=== PATIENT | female | born 1985 | race Caucasian/White ===

== ENCOUNTER 2020-01-20 18:49 | Emergency (ER) | payer SELFPAY ==
[2020-01-20] VITALS (18 sets, daily range): BP systolic 93–150; BP diastolic 61–97; PULSE 71–90; RESP 12–22; TEMP 36.1; O2SAT 99–100
--- NOTE | ~2020-01-20 | CT_ITS ---
EXAMINATION: CT abdomen pelvis w con DATE: 01/20/2020 20:29 INDICATION: Right abdominal pain. Nausea. TECHNIQUE: Computed tomography (CT) of the abdomen and pelvis was performed with 100 mL Omnipaque 350 intravenous contrast. Automated exposure control and iterative reconstruction technique were employe d. The dose-length product was 607.23 mGy-cm. COMPARISON: CT abdomen and pelvis 11/30/2010 FINDINGS: The visualized portions of the lung bases demonstrate mild atelectasis. No pleural effusion . The heart size is normal. No pericardial effusion. There is a small sliding hiatal hernia. The live r, gallbladder, spleen, pancreas, and adrenal glands are normal. There are cysts in the kidneys measu ring up to 6 mm. There are no dilated loops of bowel. The appendix is normal. There are no pathologic ally enlarged lymph nodes. There is trace pelvic ascites. There is mild lumbar spondylosis and modera te thoracic spondylosis. IMPRESSION: 1. Small sliding hiatal hernia. Reviewed, dictated and finalized at location A.
[2020-01-20 19:11] LABS: Basophils Absolute Auto 0.1 K/mm3 (0.0-0.1); Basophils Percent Auto 0.5 % (0.2-1.2); Eosinophils Absolute Auto 0.1 K/mm3 (0-0.3); Eosinophils Percent Auto 0.6 % (0-4.4); Hematocrit 39.9 % (37.0-47.0); Hemoglobin 13.4 g/dL (12.0-15.0); Immature Granulocyte Absolute 0.04 K/mm3 (0.00-0.031); Immature Granulocyte Percent A 0.4 % (0-0.5); Lymphocytes Absolute Auto 2.37 K/mm3 (0.9-3.2); Lymphocytes Percent Auto 24.4 % (18.3-44.2); Mean Corpuscular HGB Conc 33.6 g/dl (32-36); Mean Corpuscular Hemoglobin 28.9 pg (26-34); Mean Corpuscular Volume 86.2 fl (80-100); Mean Platelet Volume 10.5 fl (7.4-10.4); Monocytes Absolute Auto 0.9 K/mm3 (0.1-0.6); Monocytes Percent Auto 8.8 % (2.6-8.5); Neutrophils Absolute Auto 6.3 K/mm3 (1.3-6.7); Neutrophils Percent Auto 65.3 % (45.5-73.1); Platelet Count Result 262 k/mm3 (150-375); Red Blood Count 4.63 M/mm3 (4.2-5.4); White Blood Count 9.7 K/mm3 (4.5-10.0)
[2020-01-20 19:13] LABS: Add Urine Microscopic? NO; Appearance Urine Clear (Clear); Bilirubin Urine Negative (Negative); Blood Urine Negative (Negative); Color Urine Yellow (Yellow); Glucose Urine UA Negative (Negative); Ketones Urine Negative (Negative); Leukocyte Esterase Ur Negative LEU/UL (Negative); Nitrate Urine Negative (Negative); Protein Urine Negative (Negative); Specific Grav Ur 1.024 (1.001-1.035); Urobilinogen Urine Negative mg/dL (<2.0)
[2020-01-20 19:25] LABS: Alanine Aminotransferase 19 U/L (4-35); Albumin Level 4.7 g/dL (3.5-5.1); Alkaline Phosphatase 87 U/L (38-126); Anion Gap 9 mmol/L (8-16); Aspartate Amino Transferase 22 U/L (14-36); Bilirubin,Total 0.4 mg/dL (0.2-1.3); Blood Urea Nitrogen 13 mg/dL (7-17); Calcium 9.9 mg/dL (8.4-10.2); Carbon Dioxide 25 mmol/L (22-30); Chloride 101 mmol/L (98-107); Estimated Glomerular Filt Rate > 60; Glucose 106 mg/dL (65-105); Lipase 100 U/L (23-300); Potassium 3.9 mmol/L (3.4-5.0); Sodium 135 mmol/L (137-145)
--- NOTE | 2020-01-20 19:35 | ED.ABDPAIN ---
HPI - Abdominal Pain General Chief Complaint: Abdominal Pain Stated Complaint: right abd pain Time Seen by Provider: 01/20/20 19:10 History of Present Illness HPI narrative: Patient is a 34-year-old female who presents ER with right-sided abdominal pain. It is intermittent and comes in waves. Associate with nausea and vomiting. Unknown aggravating or alleviating factors. Ongoing for last 2 days. Seems to be more in the right upper quadrant more in the eights down to the right lower quadrant. No urinary frequency/urgency/hematuria/dysuria. Related Data Allergies Allergy/AdvReac Type Severity Reaction Status Date / Time Penicillins AdvReac Unknown Vomiting Verified 01/20/20 19:10 Review of Systems Review of Systems: All systems reviewed & are unremarkable except as noted in HPI and below Constitutional: Constitutional: Denies chills, Denies fever(s) and Denies weakness Gastrointestinal: Gastrointestinal: Reports abdominal pain, Denies diarrhea, Reports nausea and Denies vomiting Genitourinary: Genitourinary: Denies hematuria, Denies nocturia, Denies dysuria and Reports flank pain PMFSH Past Medical History Medical History (Updated 01/20/20 @ 22:07 by Gurjit Luna MD) Healthy female adult Surgical History Surgical History (Updated 01/20/20 @ 19:40 by Gurjit Luna MD) No history of previous surgery Family History Family History (Updated 12/02/15 @ 23:21 by DOCTOR UNKNOWN) Mother Family history of rheumatoid arthritis Father Family history of diabetes mellitus in first degree relative Sibling Patient's sister is in good health Grandparent Family history of malignant neoplasm of breast Acute myocardial infarction Social History Social History Smoking status: Never smoker Alcohol intake: never Gender identity (if verbalized by the patient): Female Exam Narrative: Exam Narrative: GENERAL: Well-appearing, well-nourished, and in no acute distress. HEAD: Normocephalic, atraumatic. ENT: Mucous membranes moist. CHEST: Clear to auscultation. No respiratory distress. HEART: Regular rate and rhythm. Normal peripheral pulses. ABDOMEN: Soft, moderate tenderness in the right upper quadrant without guarding, nondistended. EXTREMITIES: Normal range of motion. No edema. SKIN: Warm, dry, no rash. NEURO: Alert and oriented x3. Course Course Emergency Course: Patient informed of results. Discharge home with Bentyl and simethicone. Vital Signs Vital signs: Vital Signs Temperature 97.0 F L 01/20/20 18:54 Pulse Rate 90 01/20/20 18:54 Respiratory Rate 16 01/20/20 18:54 Blood Pressure 150/97 H 01/20/20 18:54 Pulse Oximetry 100 01/20/20 18:54 Temperature 97.0 F L 01/20/20 18:54 Pulse Rate 79 01/20/20 21:49 Respiratory Rate 22 H 01/20/20 21:49 Blood Pressure 108/84 01/20/20 21:46 Pulse Oximetry 100 01/20/20 19:52 MDM - Abdominal Pain Lab Data Result diagrams: 01/20/20 19:04 01/20/20 19:04 Labs: Lab Results 01/20/20 01/20/20 01/20/20 Range/Units 19:04 19:04 19:04 WBC 9.7 (4.5-10.0) K/mm3 RBC 4.63 (4.2-5.4) M/mm3 Hgb 13.4 (12.0-15.0) g/dL Hct 39.9 (37.0-47.0) % MCV 86.2 (80-100) fl MCH 28.9 (26-34) pg MCHC 33.6 (32-36) g/dl RDW 13.0 (11.5-14.5) % Plt Count 262 (150-375) k/mm3 MPV 10.5 H (7.4-10.4) fl Immature Gran % (Auto) 0.4 (0-0.5) % Neut % (Auto) 65.3 (45.5-73.1) % Lymph % (Auto) 24.4 (18.3-44.2) % [place] % (Auto) 8.8 H (2.6-8.5) % Eos % (Auto) 0.6 (0-4.4) % Baso % (Auto) 0.5 (0.2-1.2) % Lymph # (Auto) 2.37 (0.9-3.2) K/mm3 [place] # (Auto) 0.9 H (0.1-0.6) K/mm3 Eos # (Auto) 0.1 (0-0.3) K/mm3 Baso # (Auto) 0.1 (0.0-0.1) K/mm3 Abs Immat Gran (auto) 0.04 H (0.00-0.031) K/mm3 Absolute Neuts (auto) 6.3 (1.3-6.7) K/mm3 Absolute Nucleated RBC 0.0 (0.0-0.012) K/mm3 Nucleated RBC % 0.0 (0.0-0.2) % Sod
[2020-01-20] MEDS: MORPHINE SULFATE (*CRX) 4 MG/ML INJ IV PUSH (19:51)
== END 2020-01-20 23:12 | disposition home or self-care (01) ==
PROVIDERS: Emergency Provider Emergency Medicine
DX: R10.9 Unspecified abdominal pain (principal)
CPT/HCPCS: 36415; 74177; 80053; 81003; 81025; 83690; 85025; 96374; 99284; J2270; Q9967

== ENCOUNTER 2020-11-05 23:55 | Emergency (ER) | payer SELFPAY ==
[2020-11-06 00:08] VITALS: BP 152/97; PULSE 85; RESP 16; TEMP 36.9; O2SAT 99
--- NOTE | 2020-11-06 01:48 | ED.DENTAL ---
HPI - Dental/Oral General Chief complaint: Dental/Oral Stated complaint: gum abscess Time Seen by Provider: 11/06/20 01:01 History of Present Illness HPI Narrative: Patient is a 35-year-old female who presents ER with swelling of her gums on the left side of the upper part of her mouth. Located between tooth 11 and 12. No purulent drainage. No pain. Denies fevers or chills or sweats. No difficulty breathing or swallowing. No facial swelling. Related Data Allergies Allergy/AdvReac Type Severity Reaction Status Date / Time Penicillins AdvReac Unknown Vomiting Verified 01/20/20 19:10 Review of Systems Constitutional: Constitutional: Denies chills and Denies fever(s) ENT: Denies sore throat Comments: No dental pain, gingival swelling is present. Respiratory: Respiratory: Denies cough and Denies dyspnea PMFSH Past Medical History Medical History (Updated 11/06/20 @ 01:51 by Gurjit Luna MD) Healthy female adult Surgical History Surgical History (Updated 01/20/20 @ 19:40 by Gurjit Luna MD) No history of previous surgery Family History Family History (Updated 12/02/15 @ 23:21 by DOCTOR UNKNOWN) Mother Family history of rheumatoid arthritis Father Family history of diabetes mellitus in first degree relative Sibling Patient's sister is in good health Grandparent Family history of malignant neoplasm of breast Acute myocardial infarction Social History Social History Smoking status: Never smoker Alcohol intake: never Gender identity (if verbalized by the patient): Female Exam Narrative: Exam Narrative: GENERAL: Well-appearing, well-nourished, and in no acute distress. HEAD: Normocephalic, atraumatic. ENT: Mucous membranes moist. Gingival hyperplasia located between teeth #11/12. No fluctuant abscess. Nontender. NEURO: Alert and oriented x3. PSYCH: Normal mood and affect. Course Course Emergency Course: Gingival inflammation may be related to infection despite not having dental pain. Will start on cephalosporin and patient will follow up with a dentist. Vital Signs Vital signs: Vital Signs Temperature 98.4 F 11/06/20 00:08 Pulse Rate 85 11/06/20 00:08 Respiratory Rate 16 11/06/20 00:08 Blood Pressure 152/97 H 11/06/20 00:08 Pulse Oximetry 99 11/06/20 00:08 Temperature 98.4 F 11/06/20 00:08 Pulse Rate 85 11/06/20 00:08 Respiratory Rate 16 11/06/20 00:08 Blood Pressure 152/97 H 11/06/20 00:08 Pulse Oximetry 99 11/06/20 00:08 Discharge Plan Discharge Clinical Impression: Gingival hyperplasia Patient Disposition: Home, Self-Care Condition: Stable Instructions: Antibiotic Form, Toothache (ED) Additional Instructions: The swelling of your gum may be related to a brewing infection. Take the antibiotics prescribed to help with this. Follow-up with a dentist for further treatment evaluation. Return the ER if you cannot breathe, you cannot swallow, you have additional concerns. Prescriptions: No Action dicyclomine 20 mg tablet 20 mg PO QID Qty: 20 RF: 0 simethicone [Gas Relief (simethicone)] 125 mg tablet,chewable 125 mg PO TID PRN (Reason: abdominal distention) Qty: 20 RF: 0 Follow-up/Referrals: Dental Referral Line [Outside] - 1 Week Ke,GRISELDA Jay [Primary Care Provider] - Stand Alone Forms: Work/School Release IP
[2020-11-06 02:17] VITALS: BP 146/90; PULSE 86; RESP 16; TEMP 36.8; O2SAT 100
== END 2020-11-06 02:18 | disposition home or self-care (01) ==
PROVIDERS: Emergency Provider Emergency Medicine; PCP Nurse Practitioner
DX: K06.1 Gingival enlargement (principal)
CPT/HCPCS: 99281

== ENCOUNTER 2021-05-05 11:24 | Emergency (ER) | payer SELFPAY ==
--- NOTE | ~2021-05-05 | US_ITS ---
EXAMINATION: US OB <=14 wk fetus w TV EXAM DATE: 05/05/2021 18:18 INDICATION: Positive test, vomiting, abd pain . 1st trimester. TECHNIQUE: Pelvic obstetrical transabdominal sonogram was performed by a technologist. There are mu ltiple grayscale and Doppler images available for interpretation. There are no earlier studies of th is gestation for comparison. FINDINGS: Uterus measures 8.9 x 4.8 x 6.3 cm. There is intrauterine gestation sac. pole with heart rate confirmed at 129 beats per minute. The 6 mm crown-rump length corresponds to estimated ge stational age by ultrasound of 6 weeks 3 days12/26/2021. Yolk sac is identified. There is small sub chorionic hematoma measuring 3 x 4 x 5 mm. The ovaries are morphologically normal with expected Dopp ler flow confirmed. IMPRESSION: Early live intrauterine gestation, small subchorionic hemorrhage. Reviewed, dictated and finalized at location A. WORKS [employer]IST
[2021-05-05 11:31] VITALS: BP 109/83; PULSE 95; RESP 14; TEMP 36.1; O2SAT 100
--- NOTE | 2021-05-05 14:57 | ED.NAVMDI ---
HPI - Nausea/Vomiting/Diarrhea General Chief complaint: Nausea/Vomiting/Diarrhea Stated complaint: covid positive, vomiting Time Seen by Provider: 05/05/21 14:46 Source: patient Mode of arrival: ambulatory Limitations: no limitations History of Present Illness HPI Narrative: This is a 35 year old female that presents to the ER for nausea and vomiting x3 days. Reports she was having cough and congestion so she was tested for Covid. This came back positive 5 days ago. She is vaccinated. Over the last couple of days she has had a lot of trouble with nausea and vomiting. Reports she has not been able to keep anything down. Denies fever, or abdominal pain. Related Data Allergies Allergy/AdvReac Type Severity Reaction Status Date / Time Penicillins AdvReac Unknown Vomiting Verified 01/20/20 19:10 Review of Systems Review of Systems: CONSTITUTIONAL: Denies fever CARDIOVASCULAR: Denies chest pain RESPIRATORY: Denies dyspnea. GASTROINTESTINAL: Reports nausea and vomiting. Denies abdominal pain All systems reviewed & are unremarkable except as noted in HPI and below PMFSH Past Medical History Medical History (Updated 05/05/21 @ 19:08 by Melba Orr PA-C) Healthy female adult Surgical History Surgical History (Updated 01/20/20 @ 19:40 by Gurjit Luna MD) No history of previous surgery Family History Family History (Updated 12/02/15 @ 23:21 by DOCTOR UNKNOWN) Mother Family history of rheumatoid arthritis Father Family history of diabetes mellitus in first degree relative Sibling Patient's sister is in good health Grandparent Family history of malignant neoplasm of breast Acute myocardial infarction Social History Social History Smoking status: Never smoker Alcohol intake: never Gender identity (if verbalized by the patient): Female Exam Narrative: GENERAL: Well-appearing, well-nourished, and in no acute distress. HEAD: Normocephalic, atraumatic. EYES: EOMI. CHEST: Clear to auscultation. No respiratory distress. No wheezes rales or rhonchi HEART: Regular rate and rhythm. No murmur heard. Normal peripheral pulses. ABDOMEN: Soft, nontender, nondistended, normal active bowel sounds. EXTREMITIES: Normal range of motion. No edema. SKIN: Warm, dry, no rash. NEURO: No focal deficits. Alert and oriented x3. PSYCH: Normal mood and affect Course Vital Signs Vital signs: Vital Signs Temperature 97.0 F L 05/05/21 11:31 Pulse Rate 95 05/05/21 11:31 Respiratory Rate 14 05/05/21 11:31 Blood Pressure 109/83 05/05/21 11:31 Pulse Oximetry 100 05/05/21 11:31 Temperature 97.0 F L 05/05/21 11:31 Pulse Rate 75 05/05/21 18:45 Respiratory Rate 18 05/05/21 18:45 Blood Pressure 121/78 05/05/21 18:45 Pulse Oximetry 100 05/05/21 18:45 MDM - Nausea/Vomiting/Diarrhea MDM Narrative Medical decision making narrative: Patient presents to the emergency department for cold symptoms present over the last week. Known Covid positive. She is afebrile and nontoxic-appearing. Oxygen saturation has remained normal on room air. CBC and metabolic panel without concerning findings. UA showing dehydration and possible infection. Patient will be started on Macrobid. Bedside test was positive today. Reports her last menstrual period was about 5 weeks ago. Ultrasound was obtained which showed a early live intrauterine gestation, also a small subchorionic hemorrhage. Patient is not currently having any vaginal bleeding. Patient was updated on case findings. Spoke with Dr. De La Torre about patient and work-up will follow-up in clinic. Patient will be given Reglan as needed for nausea and vomiting at home. She was hydrated in the ED and able to tolerate p.o. challenge. She is stable and felt appropriate for further outpatient evaluation. She was given warnings to return to the ER Lab Data Attestation: I reviewed the patient's lab results. Result diagrams: 05/05/21 15:18
[2021-05-05 15:24] LABS: Basophils Percent Auto 0.2 % (0.2-1.2); Eosinophils Percent Auto 0.2 % (0-4.4); Hemoglobin 14.1 g/dL (12.0-15.0); Immature Granulocyte Absolute 0.02 K/mm3 (0.00-0.031); Immature Granulocyte Percent A 0.2 % (0-0.5); Lymphocytes Percent Auto 19.7 % (18.3-44.2); Mean Corpuscular HGB Conc 34.4 g/dl (32-36); Mean Corpuscular Hemoglobin 30.1 pg (26-34); Mean Corpuscular Volume 87.6 fl (80-100); Mean Platelet Volume 10.2 fl (7.4-10.4); Monocytes Absolute Auto 0.7 K/mm3 (0.1-0.6); Monocytes Percent Auto 8.1 % (2.6-8.5); Neutrophils Absolute Auto 5.8 K/mm3 (1.3-6.7); Neutrophils Percent Auto 71.6 % (45.5-73.1); Platelet Count Result 207 k/mm3 (150-375); Red Blood Count 4.68 M/mm3 (4.2-5.4); Red Cell Distribution Width 12.4 % (11.5-14.5); White Blood Count 8.1 K/mm3 (4.5-10.0)
[2021-05-05] MEDS: SODIUM CHLORIDE 0.9% IV 1,000 ML 999 ML IV CONT ×2 (15:27→18:11)
[2021-05-05] MEDS: ONDANSETRON INJ 4 MG/2 ML VIAL IV PUSH (15:28)
[2021-05-05] MEDS: FAMOTIDINE 20 MG/2 ML VIAL IV PUSH (15:28)
[2021-05-05 15:30] VITALS: BP 110/79; PULSE 94; RESP 15; O2SAT 100
[2021-05-05 15:35] LABS: Alanine Aminotransferase 45 U/L (4-35); Albumin Level 4.6 g/dL (3.5-5.1); Alkaline Phosphatase 72 U/L (38-126); Anion Gap 14 mmol/L (8-16); Aspartate Amino Transferase 38 U/L (14-36); Bilirubin,Total 0.8 mg/dL (0.2-1.3); Blood Urea Nitrogen 13 mg/dL (7-17); Calcium 9.3 mg/dL (8.4-10.2); Carbon Dioxide 21 mmol/L (22-30); Chloride 101 mmol/L (98-107); Estimated CRCL calculation 86 ml/min; Estimated Glomerular Filt Rate > 60; Glucose 95 mg/dL (65-110); Lipase 70 U/L (23-300); Sodium 136 mmol/L (137-145)
--- NOTE | 2021-05-05 15:35 | PC.NURSE ---
Pt unable to give urine sample at this time.
[2021-05-05 17:00] VITALS: BP 120/84; PULSE 92; RESP 15; O2SAT 100
[2021-05-05 17:19] LABS: Add Urine Microscopic? YES; Appearance Urine Clear (Clear); Bacteria Urine Trace /hpf; Bilirubin Urine Negative (Negative); Blood Urine 2+ (Negative); Color Urine Amber (Yellow); Glucose Urine UA Negative (Negative); Ketones Urine 2+ mg/dL (Negative); Leukocyte Esterase Ur 3+ LEU/UL (Negative); Mucus Urine Moderate /lpf; Nitrate Urine Negative (Negative); Protein Urine 1+ mg/dL (Negative); Specific Grav Ur 1.028 (1.001-1.035); Squamous Epithelial Cell Urine Many /hpf (Few); WBC Urine 51-75 /hpf
[2021-05-05 18:45] VITALS: BP 121/78; PULSE 75; RESP 18; O2SAT 100
== END 2021-05-05 19:27 | disposition home or self-care (01) ==
PROVIDERS: Physician Assistant; Emergency Provider Emergency Medicine; PCP Nurse Practitioner
DX: O98.519 Other viral diseases complicating pregnancy, unspecified trimester (principal); U07.1 COVID-19; O26.899 Other specified pregnancy related conditions, unspecified trimester; E86.0 Dehydration; R11.2 Nausea with vomiting, unspecified; Z3A.00 Weeks of gestation of pregnancy not specified
CPT/HCPCS: 36415; 76801; 76817; 80053; 81001; 81025; 83690; 84702; 85025; 87086; 87088; 96361; 96374; 96375; 99284; J0131; J2405; J7030

== ENCOUNTER 2021-06-11 15:12 | Emergency (ER) | payer SELFPAY ==
[2021-06-11 15:40] VITALS: BP 127/88; PULSE 90; RESP 16; TEMP 36.6; O2SAT 99
[2021-06-11] MEDS: METOCLOPRAMIDE HCL INJ 10 MG/2 ML VIAL IV PUSH (18:08)
[2021-06-11] MEDS: SODIUM CHLORIDE 0.9% IV 1,000 ML 999 ML IV CONT ×2 (18:08→19:27)
[2021-06-11 18:10] LABS: Basophils Percent Auto 0.2 % (0.2-1.2); Eosinophils Percent Auto 0.1 % (0-4.4); Hematocrit 40.1 % (37.0-47.0); Hemoglobin 13.6 g/dL (12.0-15.0); Immature Granulocyte Absolute 0.03 K/mm3 (0.00-0.031); Immature Granulocyte Percent A 0.3 % (0-0.5); Lymphocytes Absolute Auto 1.24 K/mm3 (0.9-3.2); Lymphocytes Percent Auto 13.7 % (18.3-44.2); Mean Corpuscular HGB Conc 33.9 g/dl (32-36); Mean Corpuscular Hemoglobin 30.8 pg (26-34); Mean Corpuscular Volume 90.9 fl (80-100); Mean Platelet Volume 10.5 fl (7.4-10.4); Monocytes Absolute Auto 0.7 K/mm3 (0.1-0.6); Monocytes Percent Auto 7.5 % (2.6-8.5); Neutrophils Absolute Auto 7.1 K/mm3 (1.3-6.7); Neutrophils Percent Auto 78.2 % (45.5-73.1); Platelet Count Result 197 k/mm3 (150-375); Red Blood Count 4.41 M/mm3 (4.2-5.4); Red Cell Distribution Width 12.7 % (11.5-14.5); White Blood Count 9.1 K/mm3 (4.5-10.0)
--- NOTE | 2021-06-11 18:40 | ED.GENADULT ---
HPI - General Adult General Chief complaint: Nausea/Vomiting/Diarrhea Stated complaint: N/V 12WKS PREG Time Seen by Provider: 06/11/21 17:33 Source: patient and RN notes reviewed History of Present Illness HPI narrative: Patient is a 35 y/o female complaining of nausea and vomiting starting 2 days ago. She states that she is vomiting up liquid and food. She vomited 15-20 minutes during last 24 hours. She has no dysuria, abdominal pain or diarrhea. She states that she is about 12 week . Related Data Allergies Allergy/AdvReac Type Severity Reaction Status Date / Time Penicillins AdvReac Unknown Vomiting Verified 01/20/20 19:10 Review of Systems Constitutional: Constitutional: Denies chills, Denies fever(s), Denies headache(s) and Denies weakness Eyes: Eyes: Denies blurry vision ENT: Denies headache(s) and Denies neck pain Cardiovascular: Cardiovascular: Denies chest pain and Denies dyspnea Respiratory: Respiratory: Denies cough and Denies dyspnea Gastrointestinal: Gastrointestinal: Denies abdominal pain, Denies diarrhea, Reports nausea and Reports vomiting Genitourinary: Genitourinary: Denies hematuria and Denies dysuria Musculoskeletal: Musculoskeletal: Denies back pain and Denies neck pain Neurologic: Denies headache(s) and Denies weakness PMFSH Past Medical History Medical History Healthy female adult Surgical History Surgical History No history of previous surgery Family History Family History Mother Family history of rheumatoid arthritis Father Family history of diabetes mellitus in first degree relative Sibling Patient's sister is in good health Grandparent Family history of malignant neoplasm of breast Acute myocardial infarction Social History Social History Smoking status: Never smoker Alcohol intake: never Gender identity (if verbalized by the patient): Female Exam Const: General: no acute distress and well developed Orientation/consciousness: oriented to person, oriented to place, oriented to time and patient oriented x3 HENMT: Head: normocephalic Ears: external ears normal General nose exam: Normal external nose present Eyes: General: appearance normal, both eyes and all related structures Conjunctivae: conjunctivae normal Neck: Neck: normal visual inspection and full ROM Chest: Chest palpation & inspection: normal inspection of the chest and no tenderness Resp: Effort & Inspection: normal respiratory effort Auscultation: clear to auscultation bilaterally Cardio: Rate: regular rate Rhythm: regular rhythm GI: GI Palp: No abdominal tenderness and Yes Soft to palpation Skin: General skin exam: normal color and turgor normal Neuro: General: oriented to person, oriented to place, oriented to time and patient oriented x3 Cognition (Neuro): normal cognition Extrem: General: normal to inspection, full ROM and no pedal edema Psych: Appearance: grossly normal Mental Status: mental status grossly normal Affect: normal affect Course Vital Signs Vital signs: Vital Signs Temperature 36.6 C 06/11/21 15:40 Pulse Rate 90 06/11/21 15:40 Respiratory Rate 16 06/11/21 15:40 Blood Pressure 127/88 06/11/21 15:40 Pulse Oximetry 99 06/11/21 15:40 Temperature 36.6 C 06/11/21 15:40 Pulse Rate 90 06/11/21 15:40 Respiratory Rate 16 06/11/21 15:40 Blood Pressure 127/88 06/11/21 15:40 Pulse Oximetry 99 06/11/21 15:40 Medical Decision Making Vital Signs Vital Signs: Vital Signs Temperature 36.6 C 06/11/21 15:40 Pulse Rate 90 06/11/21 15:40 Respiratory Rate 16 06/11/21 15:40 Blood Pressure 127/88 06/11/21 15:40 Pulse Oximetry 99 06/11/21 15:40 Temperature 36.6 C 06/11/21 15:40 Pulse Rate 90 06/11/21
[2021-06-11 18:45] LABS: Add Urine Microscopic? YES; Appearance Urine Clear (Clear); Bacteria Urine Trace /hpf; Bilirubin Urine Negative (Negative); Blood Urine 1+ (Negative); Color Urine Amber (Yellow); Glucose Urine UA Negative (Negative); Ketones Urine Negative (Negative); Leukocyte Esterase Ur 2+ LEU/UL (Negative); Mucus Urine Heavy /lpf; Nitrate Urine Negative (Negative); Protein Urine Negative (Negative); Squamous Epithelial Cell Urine Many /hpf (Few); Urobilinogen Urine Negative mg/dL (<2.0); WBC Urine 51-75 /hpf
[2021-06-11 18:46] LABS: Specific Grav Ur 1.031 (1.001-1.035)
[2021-06-11 18:47] LABS: Alanine Aminotransferase 33 U/L (4-35); Alkaline Phosphatase 67 U/L (38-126); Anion Gap 13 mmol/L (8-16); Aspartate Amino Transferase 29 U/L (14-36); Bilirubin,Total 1.2 mg/dL (0.2-1.3); Blood Urea Nitrogen 9 mg/dL (7-17); Calcium 9.7 mg/dL (8.4-10.2); Carbon Dioxide 20 mmol/L (22-30); Chloride 103 mmol/L (98-107); Estimated CRCL calculation 77 ml/min; Estimated Glomerular Filt Rate > 60; Glucose 81 mg/dL (65-110); Potassium 3.6 mmol/L (3.4-5.0); Sodium 136 mmol/L (137-145)
--- NOTE | 2021-06-11 20:22 | PC.NURSE ---
patient receiving bag 2 of IVF. able to tolerate po intake and states she feels better at this time. will continue to receive fluids and then d/c home as directed.
== END 2021-06-11 21:17 | disposition home or self-care (01) ==
PROVIDERS: Emergency Provider Emergency Medicine; PCP Nurse Practitioner
DX: O21.0 Mild hyperemesis gravidarum (principal); O23.41 Unspecified infection of urinary tract in pregnancy, first trimester; Z3A.12 12 weeks gestation of pregnancy
CPT/HCPCS: 36415; 80053; 81001; 84702; 85025; 87086; 87088; 96361; 96374; 99284; J2765; J7030

== ENCOUNTER 2021-08-28 19:07 | Outpatient (CLI) | payer OTHER, SELFPAY ==
[2021-08-28] VITALS (7 sets, daily range): BP systolic 102–123; BP diastolic 58–73; PULSE 71–84; RESP 16; TEMP 36.7
[2021-08-28 20:12] LABS: Basophils Percent Auto 0.1 % (0.2-1.2); Eosinophils Percent Auto 0.4 % (0-4.4); Hematocrit 34.5 % (37.0-47.0); Hemoglobin 11.4 g/dL (12.0-15.0); Immature Granulocyte Absolute 0.05 K/mm3 (0.00-0.031); Immature Granulocyte Percent A 0.6 % (0-0.5); Lymphocytes Absolute Auto 1.45 K/mm3 (0.9-3.2); Lymphocytes Percent Auto 16.3 % (18.3-44.2); Mean Corpuscular Hemoglobin 30.8 pg (26-34); Mean Corpuscular Volume 93.2 fl (80-100); Monocytes Absolute Auto 0.8 K/mm3 (0.1-0.6); Monocytes Percent Auto 8.9 % (2.6-8.5); Neutrophils Absolute Auto 6.6 K/mm3 (1.3-6.7); Neutrophils Percent Auto 73.7 % (45.5-73.1); Platelet Count Result 191 k/mm3 (150-375); White Blood Count 8.9 K/mm3 (4.5-10.0)
[2021-08-28 20:23] LABS: Alanine Aminotransferase 15 U/L (4-35); Albumin Level 3.4 g/dL (3.5-5.1); Alkaline Phosphatase 72 U/L (38-126); Anion Gap 5 mmol/L (8-16); Aspartate Amino Transferase 20 U/L (14-36); Bilirubin,Total < 0.1 mg/dL (0.2-1.3); Blood Urea Nitrogen 9 mg/dL (7-17); Calcium 8.4 mg/dL (8.4-10.2); Carbon Dioxide 24 mmol/L (22-30); Chloride 104 mmol/L (98-107); Estimated Glomerular Filt Rate > 60; Glucose 100 mg/dL (65-110); Potassium 3.8 mmol/L (3.4-5.0); Sodium 133 mmol/L (137-145); Uric Acid 2.4 mg/dL (2.5-7.5)
[2021-08-28 20:24] LABS: Creatinine Urine 192.4 mg/dL; Total Protein Urine Random 8 mg/dL; Ur Ttl Prot Creatinine Ratio 0.04 mg/mg (0-0.20)
[2021-08-28 20:26] LABS: Add Urine Microscopic? YES; Appearance Urine Cloudy (Clear); Bacteria Urine Trace /hpf; Bilirubin Urine Negative (Negative); Blood Urine Negative (Negative); Calcium Oxalate Crystals Urine Present /hpf; Color Urine Yellow (Yellow); Glucose Urine UA Negative (Negative); Ketones Urine Negative (Negative); Leukocyte Esterase Ur 1+ LEU/UL (NEGATIVE); Mucus Urine Rare /lpf; Nitrate Urine Negative (Negative); Protein Urine Negative (Negative); Specific Grav Ur 1.026 (1.001-1.035); Squamous Epithelial Cell Urine Many /hpf (Few)
== END 2021-08-28 20:35 | disposition home or self-care (01) ==
LOC: ANHOBOP 19:13 → ANHOBPP 19:13
PROVIDERS: PCP Nurse Practitioner; Visit Provider Obstetrics & Gynecology
DX: O13.9 Gestational [pregnancy-induced] hypertension without significant proteinuria, unspecified trimester (principal); Z3A.00 Weeks of gestation of pregnancy not specified
CPT/HCPCS: 36415; 59025; 80053; 81001; 82570; 84156; 84550; 85025; 87086; 87088; 99199

== ENCOUNTER 2021-09-07 10:00 | Outpatient (CLI) | payer OTHER, SELFPAY ==
--- NOTE | ~2021-09-07 | US_ITS ---
EXAMINATION: US venous doppler LE RT DATE: 09/07/2021 10:51 INDICATION: Bilateral lower limb pain TECHNIQUE: Odell scale images without and with compression and Doppler images of the bilateral lower e xtremity veins were obtained. COMPARISON: None FINDINGS: The right common femoral vein, profunda femoral vein, femoral vein, popliteal vein, peroneal trunk, p osterior tibial veins, and greater saphenous vein are patent. The left common femoral vein, profunda femoral vein, femoral vein, popliteal vein, peroneal trunk, po sterior tibial veins, and greater saphenous vein are patent. IMPRESSION: 1. Patent bilateral lower extremity veins. No evidence of deep venous thrombosis. Reviewed, dictated and finalized at location B. IMPRESSION: 1. Patent bilateral lower extremity veins. No evidence of deep venous thrombosi s.
== END 2021-09-07 10:01 | disposition home or self-care (01) ==
PROVIDERS: PCP Nurse Practitioner; Visit Provider Advanced Practice Midwife
DX: M79.661 Pain in right lower leg (principal)
CPT/HCPCS: 93971

== ENCOUNTER 2021-12-11 11:49 | Outpatient (CLI) | payer OTHER, SELFPAY | END 2021-12-11 13:30 | disposition home or self-care (01) | LOC: ANHOBOP 13:14 → ANHLDR 13:16 | PROVIDERS: PCP Nurse Practitioner; Visit Provider Advanced Practice Midwife | DX: O41.8X90 Other specified disorders of amniotic fluid and membranes, unspecified trimester, not applicable or unspecified (principal); Z3A.00 Weeks of gestation of pregnancy not specified | CPT/HCPCS: 84112; 99199 ==

== ENCOUNTER 2021-12-12 19:23 | Emergency (ER) | payer OTHER, SELFPAY ==
[2021-12-12 19:28] VITALS: BP 140/98; PULSE 60; RESP 16; TEMP 36.2; O2SAT 97
--- NOTE | 2021-12-12 22:40 | PC.NURSE ---
Pt called back from waiting room at 22:27 and again at 22:40. Security saw patient leave. Did check outside, patient is not outside at this time. Left without being seen, did not alert nursing staff.
== END 2021-12-12 22:27 | disposition left against medical advice (07) ==
PROVIDERS: PCP Nurse Practitioner
DX: R20.0 Anesthesia of skin (principal)
CPT/HCPCS: 99199

== ENCOUNTER 2021-12-19 05:45 | Inpatient (IN) | payer OTHER, SELFPAY ==
[2021-12-19] VITALS (156 sets, daily range): BP systolic 90–198; BP diastolic 56–170; PULSE 27–130; RESP 18; TEMP 36.4–37.2; O2SAT 78–100; BMI 31.6
--- OUTSIDE RECORDS SUMMARY | 2021-12-19 05:52 | XMS_ITS | Encounter Summary ---
:1985 Author Care Team Providers Name Role Phone Patience Dempsey Primary Care Provider [phone] Reason for Visit OB visit Assessment and Plan 1. Routine care Discussion Note: None recorded.Patient educational handouts: No information available. Plan of Care Reminders Provider Appointments Repeat Pap on or around 04/18/2022 Miguel Rivera MD Lab None recorded. ? ? Referral None recorded. ? ? Procedures None recorded. ? ? Surgeries None recorded. ? ? Imaging None recorded. ? ? Medications Name Start Date ? ? iron ? Vitamin ? Medications Administered None recorded. Vitals Height Weight BMI Blood Pressure 5 ft 167 lbs 32.6 kg/m2 114/77 mm[Hg] Results Lab Results None recorded. Allergies Code Code System Name Reaction Severity Onset Penicillins ? ? ? Problems Name Status Onset Date Source ? History of SARS-CoV-2 Active 04/05/2021 ? Active 06/15/2021 ? Procedures Date Name Performed by ? 05/06/2003 Extraction of [place] Tooth Information n ot available 11/22/2021 US, Obstetric, Follow-up [place] [address] [place] [address] (Work [address]) Vaccine List None recorded. Social History Tobacco Smoking Status Never Smoker Do you have difficulty walking or climbing stairs? N What type of diet are you following? REGULAR
--- OUTSIDE RECORDS SUMMARY | 2021-12-19 05:52 | XMS_ITS | Encounter Summary ---
:1985 Author Care Team Providers Name Role Phone Patience Dempsey Primary Care Provider [phone] Reason for Visit OB visit OB [id number] EDC 12/26/2021 LMP 03/26/2021 Assessment and Plan Assessment Note Patient is _35__weeks . Discuss ed plan. 1. Routine care Discussion Note: None recorded.Patient [...] Pressure 5 ft 167 lbs 32.6 kg/m2 127/85 mm[Hg] Results Lab Results None recorded. Allergies Code Code System Name Reaction Severity Onset Penicillins ? ? ? Problems Name Status Onset Date Source ? History of SARS-CoV-2 Active 04/05/2021 ? Active 06/15/2021 ? Procedures Date Name Performed by ? 05/06/2003 Extraction of [place] Tooth Information n ot available 11/02/2021 US, Obstetric, Follow-up [place] [address] [place] [address] (Work [address]) 11/22/2021 US, Obstetric, Follow-u
--- OUTSIDE RECORDS SUMMARY | 2021-12-19 05:52 | XMS_ITS | Encounter Summary ---
:1985 Author Care Team Providers Name Role Phone Patience Dempsey Primary Care Provider [phone] Reason for Visit OB visit Assessment and Plan Assessment Note Patient is ___weeks . Discussed plan. 1. Routine care Discussion Note: None [...] Pressure 5 ft 167 lbs 32.6 kg/m2 118/77 mm[Hg] Results Lab Results None recorded. Allergies Code Code System Name Reaction Severity Onset Penicillins ? ? ? Problems Name Status Onset Date Source ? History of SARS-CoV-2 Active 04/05/2021 ? Active 06/15/2021 ? Procedures Date Name Performed by ? 05/06/2003 Extraction of [place] Tooth Information n ot available 11/02/2021 US, Obstetric, Follow-up [place] [address] [place] [address] (Work [address]) 11/22/2021 US, Obstetric, Follow-up [place] [address]
--- OUTSIDE RECORDS SUMMARY | 2021-12-19 05:52 | XMS_ITS | Encounter Summary ---
:1985 Author Care Team Providers Name Role Phone Patience Dempsey Primary Care Provider [phone] Reason for Visit OB visit Assessment and [...] Pressure 5 ft 167 lbs 32.6 kg/m2 118/82 mm[Hg] Results Lab Results None recorded. Allergies Code Code System Name Reaction Severity Onset Penicillins ? ? ? Problems Name Status Onset Date Source ? History of SARS-CoV-2 Active 04/05/2021 ? Active 06/15/2021 ? Procedures Date Name Performed by ? 05/06/2003 Extraction of [place] Tooth Information n ot available 11/22/2021 US, Obstetric, Follow-up [place] [address] [place] [address] (Work [address]) Vaccine List None recorded. Social History Tobacco Smoking Status Never Smoker Do you have difficulty walking or climbing stairs? N What type of diet are you following? REGULAR
--- OUTSIDE RECORDS SUMMARY | 2021-12-19 05:52 | XMS_ITS | Encounter Summary ---
:1985 Author Care Team Providers Name Role Phone Patience Dempsey Primary Care Provider [phone] Reason for Visit None recorded. Assessment and Plan 1. Pre-existing maternal disease compli cating ? US, obstetric, follow-up Discussion Note: None recorded.Patient educational handouts: No information available. Plan of Care Reminders Provider Appointments Repeat Pap on or around Ken avalos MD 04/18/2022 Lab None recorded. ? ? Referral None recorded. ? ? Procedures None recorded. ? ? Surgeries None recorded. ? ? Imaging US, Obstetric, 11/22/2021 [place] Follow-up Medications Name Start Date ? ? iron ? Vitamin ? Medications Administered None recorded. Vitals None recorded. Results Lab Results None recorded. Allergies Code Code System Name Reaction Severity Onset Penicillins ? ? ? Problems Name Status Onset Date Source ? History of SARS-CoV-2 Active 04/05/2021 ? Active 06/15/2021 ? Procedures Date Name Performed by ? 05/06/2003 Extraction of [place] Tooth Information n ot available 11/02/2021 US, Obstetric, Follow-up [place] [address] [place] [address] (Work [address]) 11/22/2021 US, Obstetric, Follow-up [place] [address] [facility]
--- OUTSIDE RECORDS SUMMARY | 2021-12-19 05:52 | XMS_ITS ---
:1985 Author Care Team Providers Name Role Phone LUCY BOLANOS Primary Care Provider [phone] Allergies Code Code System Name Reaction Severity Status Onset Penicillins ? ? Active ? Medications Name Status Start Date Stop Date ? ? acetaminophen 300 mg-codeine 30 mg tablet Completed ? 04/10/2021 1-2 TABLETS EVERY 6 HRS NEEDED FOR PAIN cephalexin 500 mg capsule Completed ? 2020 TAKE 1 CAPSULE BY MOUTH THREE TIMES DAILY chlorhexidine gluconate 0.12 % mouthwash Completed ? 04/10/2021 SIWH 10-15ML IN MOUTH THEN SPIT OUT TWICE DAILY COVID-19 test specimen collection Completed ? 11/07/2021 TEST DIRECTED iron Active ? Not available metoclopramide 10 mg tablet Completed ? 09/2021 metoclopramide 5 mg tablet Completed ? 05/23 TAKE 1 TABLET BY MOUTH EVERY 6 HOURS NEEDED FOR NAUSEA OR VO MITING moxifloxacin 0.5 % eye drops Completed ? 09/2021 nitrofurantoin monohydrate/macrocrystals 100 mg capsule Complete d ? 09/07/2021 ofloxacin 0.3 % eye drops Completed ? 2020 INSTILL 1 DROP IN RIGHT EYE EVERY 2 HOURS FOR 2 DAYS ondansetron 8 mg disintegrating tablet Completed ? 11/07/2021 DISSOLVE 1 TABLET ON THE TONGUE TWICE DAILY pantoprazole 20 mg tablet,delayed release Completed ? 04/10/2021 Vitamin Active ? Not available Problems Name Status Onset Date Source ? History of SARS-CoV-2 Active 04/05/2021 ? Active 06/15/2021 ? Procedures Date Name Performed by ? 05/06/2003 Extraction of [place] Tooth Information n ot available 05/15/2021 US,
--- OUTSIDE RECORDS SUMMARY | 2021-12-19 05:53 | XMS_ITS | Encounter Summary ---
:1985 Author Care Team Providers Name Role Phone Patience Dempsey Primary Care Provider [phone] Reason for Visit OB visit Assessment and [...] Height Weight BMI Blood Pressure 5 ft 162 lbs 31.6 kg/m2 126/89 mm[Hg] Results Lab Results None recorded. Allergies Code Code System Name Reaction Severity Onset Penicillins ? ? ? Problems Name Status Onset Date Source ? History of SARS-CoV-2 Active 04/05/2021 ? Active 06/15/2021 ? Procedures Date Name Performed by ? 05/06/2003 Extraction of [place] Tooth Information n ot available 09/07/2021 US, Obstetric, Follow-up [facility] [address] [place] [address] (Work [address]) 09/07/2021 US, Doppler, Venous [facility] [address]
--- OUTSIDE RECORDS SUMMARY | 2021-12-19 05:53 | XMS_ITS | Encounter Summary ---
:1985 Author Care Team Providers Name Role Phone Patience Dempsey Primary Care Provider [phone] Reason for Visit OB visit OB [id number] EDC 12/26/2021 LMP 03/26/2021 Assessment and Plan 1. Routine care Discussion [...] Height Weight BMI Blood Pressure 5 ft 161 lbs 31.4 kg/m2 115/79 mm[Hg] Results Lab Results None recorded. Allergies Code Code System Name Reaction Severity Onset Penicillins ? ? ? Problems Name Status Onset Date Source ? History of SARS-CoV-2 Active 04/05/2021 ? Active 06/15/2021 ? Procedures Date Name Performed by ? 05/06/2003 Extraction of [place] Tooth Information n ot available 10/06/2021 , Obstetric, Follow-up [facility] [address] [place] [address] (Work [address]) Vaccine List None recorded. Social History Tobacco Smoking Status Never Smoker Do you have difficulty walking or climbing stairs? N
--- OUTSIDE RECORDS SUMMARY | 2021-12-19 05:53 | XMS_ITS | Encounter Summary ---
:1985 Author Care Team Providers Name Role Phone Patience Dempsey Primary Care Provider [phone] Reason for Visit OB visit OB [id number] EDC 12/26/2021 LMP 03/26/2021 Assessment and Plan [...] Height Weight BMI Blood Pressure 5 ft 164 lbs 32 kg/m2 112/78 mm[Hg] Results Lab Results None recorded. Allergies Code Code System Name Reaction Severity Onset Penicillins ? ? ? Problems Name Status Onset Date Source ? History of SARS-CoV-2 Active 04/05/2021 ? Active 06/15/2021 ? Procedures Date Name Performed by ? 05/06/2003 Extraction of [place] Tooth Information n ot available 10/06/2021 US, Obstetric, Follow-up [facility] [address] [place] [address] (Work [address]) Vaccine List None recorded. Social History Tobacco Smoking Status Never Smoker Do you have difficulty walking or climbing stairs? N
--- OUTSIDE RECORDS SUMMARY | 2021-12-19 05:53 | XMS_ITS | Encounter Summary ---
:1985 Author Care Team Providers Name Role Phone Patience Dempsey Primary Care Provider [phone] Reason for Visit None recorded. Assessment and Plan 1. COVID-19 ? US, obstetric, follow-up Discussion Note: None recorded.Patient educational handouts: No information available. Plan of Care Reminders Provider Appointments Repeat Pap on or around Ken avalos MD 04/18/2022 Lab None recorded. ? ? Referral None recorded. ? ? Procedures None recorded. ? ? Surgeries None recorded. ? ? Imaging US, Obstetric, 11/02/2021 [facility] Follow-up Medications Name Start Date ? ? iron ? Vitamin ? Medications Administered None recorded. Vitals None recorded. Results Lab Results None recorded. Allergies Code Code System Name Reaction Severity Onset Penicillins ? ? ? Problems Name Status Onset Date Source ? History of SARS-CoV-2 Active 04/05/2021 ? Active 06/15/2021 ? Procedures Date Name Performed by ? 05/06/2003 Extraction of [place] Tooth Information n ot available 10/06/2021 US, Obstetric, Follow-up [facility] [address] [place] [address] (Work [address]) 11/02/2021 US, Obstetric, Follow-up [facility] [address] [place] [address]
--- OUTSIDE RECORDS SUMMARY | 2021-12-19 05:53 | XMS_ITS | Encounter Summary ---
:1985 Author Care Team Providers Name Role Phone Patience Dempsey Primary Care Provider [phone] Reason for Visit None recorded. Assessment and Plan 1. COVID-19 ? US, obstetric, follow-up Discussion Note: None recorded.Patient educational handouts: No information available. Plan of Care Reminders Provider Appointments Repeat Pap on or around Ken avalos MD 04/18/2022 Lab None recorded. ? ? Referral None recorded. ? ? Procedures None recorded. ? ? Surgeries None recorded. ? ? Imaging US, Obstetric, 10/06/2021 [facility] Follow-up Medications Name Start Date ? ? iron ? Vitamin ? Medications Administered None recorded. Vitals None recorded. Results Lab Results None recorded. Allergies Code Code System Name Reaction Severity Onset Penicillins ? ? ? Problems Name Status Onset Date Source ? History of SARS-CoV-2 Active 04/05/2021 ? Active 06/15/2021 ? Procedures Date Name Performed by ? 05/06/2003 Extraction of [place] Tooth Information n ot available 09/07/2021 US, Obstetric, Follow-up [facility] [address] [place] [address] (Work [address]) 09/07/2021 US, Doppler, Venous [facility] [address] [place] [address]
--- OUTSIDE RECORDS SUMMARY | 2021-12-19 05:53 | XMS_ITS | Encounter Summary ---
:1985 Author Care Team Providers Name Role Phone Patience Dempsey Primary Care Provider [phone] Reason for Visit OB visit Assessment and [...] Height Weight BMI Blood Pressure 5 ft 163 lbs 31.8 kg/m2 119/84 mm[Hg] Results Lab Results None recorded. Allergies Code Code System Name Reaction Severity Onset Penicillins ? ? ? Problems Name Status Onset Date Source ? History of SARS-CoV-2 Active 04/05/2021 ? Active 06/15/2021 ? Procedures Date Name Performed by ? 05/06/2003 Extraction of [place] Tooth Information n ot available 11/02/2021 US, Obstetric, Follow-up [facility] [address] [place] [address] (Work [address]) Vaccine List None recorded. Social History Tobacco Smoking Status Never Smoker Do you have difficulty walking or climbing stairs? N What type of diet are you following? REGULAR
[2021-12-19 07:16] LABS: Basophils Percent Auto 0.2 % (0.2-1.2); Eosinophils Percent Auto 0.2 % (0-4.4); Hematocrit 33.9 % (37.0-47.0); Hemoglobin 10.8 g/dL (12.0-15.0); Immature Granulocyte Absolute 0.04 K/mm3 (0.00-0.031); Immature Granulocyte Percent A 0.5 % (0-0.5); Lymphocytes Absolute Auto 1.21 K/mm3 (0.9-3.2); Lymphocytes Percent Auto 13.8 % (18.3-44.2); Mean Corpuscular HGB Conc 31.9 g/dl (32-36); Mean Corpuscular Hemoglobin 26.5 pg (26-34); Mean Corpuscular Volume 83.3 fl (80-100); Mean Platelet Volume 10.8 fl (7.4-10.4); Monocytes Absolute Auto 0.8 K/mm3 (0.1-0.6); Monocytes Percent Auto 8.8 % (2.6-8.5); Neutrophils Absolute Auto 6.7 K/mm3 (1.3-6.7); Neutrophils Percent Auto 76.5 % (45.5-73.1); Platelet Count Result 191 k/mm3 (150-375); Red Blood Count 4.07 M/mm3 (4.2-5.4); Red Cell Distribution Width 15.2 % (11.5-14.5); White Blood Count 8.8 K/mm3 (4.5-10.0)
[2021-12-19] MEDS: LACTATED RINGERS 1,000 ML 125 ML IV CONT ×3 (07:30→14:44)
[2021-12-19] MEDS: OXYTOCIN 30 UNITS/NS 500 ML 30 UNITS/500 ML BAG IV CONT (07:32)
--- NOTE | 2021-12-19 08:31 | PM.IMHP ---
H&P: HPI History of Present Illness Date/Time: 12/19/21 08:31 Chief Complaint: induction of labor Narrative: Misti is a 36yo at 39.0 for elective IOL. complicated by COVID, normal growth, taking ASA, and circumvallate placenta. GBS neg. Review of Systems Review of Systems: All systems reviewed & are unremarkable except as noted in HPI and below PMFSH Past Medical History Medical History Healthy female adult Surgical History Surgical History No history of previous surgery Family History Family History Mother Family history of rheumatoid arthritis Father Family history of diabetes mellitus in first degree relative Sibling Patient's sister is in good health Grandparent Family history of malignant neoplasm of breast Acute myocardial infarction Social History Social History Smoking status: Never smoker Alcohol intake: never Substance use: never Gender identity (if verbalized by the patient): Female Spiritual care concerns: No Meds Home Medications and Allergies Home Medications Medication Instructions Recorded Confirmed Type aspirin 81 mg tablet 81 mg PO DAILY 11/25/21 11/25/21 History ferrous sulfate mg PO 11/25/21 History prenat.vits,evaristo,[id number] 1 tablet PO DAILY 11/25/21 11/25/21 History Allergies Allergy/AdvReac Type Severity Reaction Status Date / Time Penicillins AdvReac Unknown Vomiting Verified 11/25/21 12:34 Vital Signs Vital Signs - 24 hr 12/19/21 07:00 12/19/21 08:08 12/19/21 08:15 Temperature 98.7 F Pulse Rate 62 64 Blood Pressure 113/74 120/78 12/19/21 08:31 Temperature Pulse Rate 68 Blood Pressure 109/70 Exam Const: General: no acute distress Resp: Effort & Inspection: normal respiratory effort Auscultation: clear to auscultation bilaterally Cardio: Rate: regular rate Rhythm: regular rhythm GI: GI Palp: Yes Soft to palpation Extrem: General: normal to inspection H&P: Results Labs Labs: Short CBC 08/16/22 Range/Units 06:43 WBC 8.8 (4.5-10.0) K/mm3 Hgb 10.8 L (12.0-15.0) g/dL Hct 33.9 L (37.0-47.0) % Plt Count 191 (150-375) k/mm3 Assessment and Plan Assessment and plan (1) Term : Code(s): Z34.90 - Encounter for supervision of normal , unspecified, unspecified trimester Status: Acute Assessment and Plan: GBS neg pitocin AROM clear /-3
[2021-12-19 09:34] LABS: Rapid Plasma Reagin Non-Reactive (NonReactive)
--- NOTE | 2021-12-19 14:02 | WPDANESEPPF ---
Anes - Initial Pre Proc Eval Procedure: labor epidural Date/Time: 12/19/21 14:02 Surgeon: Jyothi Rivera MD Pre Op Diagnosis: labor pain Pre Op Diagnosis: IOL Patient Data Age: 36 Gender: F Height: 1.55 m Weight: 76 kg Last Vital Signs Temp 36.6 C 12/19/21 11:07 Pulse 65 12/19/21 14:01 BP 90/74 L 12/19/21 14:01 Pulse Ox 100 12/19/21 14:01 Allergies Allergy/AdvReac Type Severity Reaction Status Date / Time Penicillins AdvReac Unknown Vomiting Verified 11/25/21 12:34 Home Medications Medication Instructions Recorded Confirmed Type aspirin 81 mg tablet 81 mg PO DAILY 11/25/21 11/25/21 History ferrous sulfate mg PO 11/25/21 History prenat.vits,evaristo,hee-[id number] 1 tablet PO DAILY 11/25/21 11/25/21 History Laboratory Tests 12/19/21 12/19/21 12/19/21 06:43 06:43 06:43 WBC 8.8 K/mm3 K/mm3 (4.5-10.0) RBC 4.07 M/mm3 L M/mm3 (4.2-5.4) Hgb 10.8 g/dL L g/dL (12.0-15.0) Hct 33.9 % L % (37.0-47.0) MCV 83.3 fl fl (80-100) MCH 26.5 pg pg (26-34) MCHC 31.9 g/dl L g/dl (32-36) RDW 15.2 % H % (11.5-14.5) Plt Count 191 k/mm3 k/mm3 (150-375) MPV 10.8 fl H fl (7.4-10.4) Immature Gran % (Auto) 0.5 % % (0-0.5) Neut % (Auto) 76.5 % H % (45.5-73.1) Lymph % (Auto) 13.8 % L % (18.3-44.2) Grand % (Auto) 8.8 % H % (2.6-8.5) Eos % (Auto) 0.2 % % (0-4.4) Baso % (Auto) 0.2 % % (0.2-1.2) Lymph # (Auto) 1.21 K/mm3 K/mm3 (0.9-3.2) Grand # (Auto) 0.8 K/mm3 H K/mm3 (0.1-0.6) Eos # (Auto) 0.0 K/mm3 K/mm3 (0-0.3) Baso # (Auto) 0.0 K/mm3 K/mm3 (0.0-0.1) Abs Immat Gran (auto) 0.04 K/mm3 H K/mm3 (0.00-0.031) Absolute Neuts (auto) 6.7 K/mm3 K/mm3 (1.3-6.7) Absolute Nucleated RBC 0.0 K/mm3 K/mm3 (0.0-0.012) Nucleated RBC % 0.0 % % (0.0-0.2) RPR Non-reactive (NonReactive) Blood Type A Positive Antibody Screen Negative Patient hx anesthesia problems: none Family hx anesthesia problems: none Results Review: All pre-operative results and documents have been reviewed as part of the pre-operative evaluation. [facility] Past Medical History Medical History Healthy female adult Surgical History Surgical History No history of previous surgery Family History Family History Mother Family history of rheumatoid arthritis Father Family history of diabetes mellitus in first degree relative Sibling Patient's sister is in good health Grandparent Family history of malignant neoplasm of breast Acute myocardial infarction Social History Social History Smoking status: Never smoker Alcohol intake: never Substance use: never Gender identity (if verbalized by the patient): Female Spiritual care concerns: No Anes - Eval Final PreProcedure Day of Procedure 12/19/21 14:02 Patient weight: obese ASA classification: II Anesthetic plan: proceed Anesthesia type and monitoring: regional epidural and standard monitoring Results Review: All pre-operative results and documents have been reviewed as part of the pre-operative evaluation. Informed Consent: The patient's anesthetic plan and its attendant risks and benefits were discussed with the patient/family/POA. Questions were solicited and answers provided to the satisfaction of the patient/family/POA.
[2021-12-19] MEDS: SODIUM CHLORIDE 0.9% IV 300 ML 600 ML I-UTERINE (18:55)
[2021-12-19] MEDS: ONDANSETRON INJ 4 MG/2 ML VIAL IV PUSH (19:11)
--- NOTE | 2021-12-19 20:52 | PM.OBPRVD ---
OB - Delivery Note Procedure Delivery date: 12/19/21 Procedure: Induction method: AROM and Per Pitocin Protocol Delivery monitor: External FHT and Internal Uterine Route of delivery: Episiotomy description: None Laceration Description: Perineal - 2nd Degree and Vaginal (extending into right labia majora) Complications: none Baby Date of : 12/19/21 Time of : 20:27 Weeks of gestation at delivery: 39 gender: Male Weight (pounds): 7 Weight (ounces): 10 Placenta delivery description: Spontaneous score one minute: 8 score five minutes: 9
[2021-12-19] MEDS: OXYTOCIN 30 UNITS/NS 500 ML 30 UNITS/500 ML BAG 125 UNITS IV CONT (21:01)
--- NOTE | 2021-12-19 22:01 | WPDANESEPP ---
Anes - Eval Pre Procedure Procedure: Labor epidural Date/Time: 12/19/21 22:01 Surgeon: Rosa Preop Diagnosis: Abd pain with contractions Pre Op Diagnosis: IOL Patient Data Age: 36 Gender: F Height: 1.55 m Weight: 76 kg Last Vital Signs Temp 97.5 F L 12/19/21 20:16 Pulse 96 12/19/21 21:46 BP 156/99 H 12/19/21 21:46 Pulse Ox 99 12/19/21 20:25 Allergies Allergy/AdvReac Type Severity Reaction Status Date / Time Penicillins AdvReac Unknown Vomiting Verified 11/25/21 12:34 Home Medications Medication Instructions Recorded Confirmed Type aspirin 81 mg tablet 81 mg PO DAILY 11/25/21 11/25/21 History ferrous sulfate mg PO 11/25/21 History prenat.vits,evaristo,qni-rhoy-ehuwe 1 tablet PO DAILY 11/25/21 11/25/21 History Laboratory Tests 12/19/21 12/19/21 12/19/21 06:43 06:43 06:43 WBC 8.8 K/mm3 K/mm3 (4.5-10.0) RBC 4.07 M/mm3 L M/mm3 (4.2-5.4) Hgb 10.8 g/dL L g/dL (12.0-15.0) Hct 33.9 % L % (37.0-47.0) MCV 83.3 fl fl (80-100) MCH 26.5 pg pg (26-34) MCHC 31.9 g/dl L g/dl (32-36) RDW 15.2 % H % (11.5-14.5) Plt Count 191 k/mm3 k/mm3 (150-375) MPV 10.8 fl H fl (7.4-10.4) Immature Gran % (Auto) 0.5 % % (0-0.5) Neut % (Auto) 76.5 % H % (45.5-73.1) Lymph % (Auto) 13.8 % L % (18.3-44.2) [place] % (Auto) 8.8 % H % (2.6-8.5) Eos % (Auto) 0.2 % % (0-4.4) Baso % (Auto) 0.2 % % (0.2-1.2) Lymph # (Auto) 1.21 K/mm3 K/mm3 (0.9-3.2) [place] # (Auto) 0.8 K/mm3 H K/mm3 (0.1-0.6) Eos # (Auto) 0.0 K/mm3 K/mm3 (0-0.3) Baso # (Auto) 0.0 K/mm3 K/mm3 (0.0-0.1) Abs Immat Gran (auto) 0.04 K/mm3 H K/mm3 (0.00-0.031) Absolute Neuts (auto) 6.7 K/mm3 K/mm3 (1.3-6.7) Absolute Nucleated RBC 0.0 K/mm3 K/mm3 (0.0-0.012) Nucleated RBC % 0.0 % % (0.0-0.2) RPR Non-reactive (NonReactive) Blood Type A Positive Antibody Screen Negative Patient hx anesthesia problems: none Family hx anesthesia problems: none Results Review: All pre-operative results and documents have been reviewed as part of the pre-operative evaluation. [facility] Past Medical History Medical History Healthy female adult Overweight (BMI 25.0-29.9) Term Surgical History Surgical History No history of previous surgery Family History Family History Mother Family history of rheumatoid arthritis Father Family history of diabetes mellitus in first degree relative Sibling Patient's sister is in good health Grandparent Family history of malignant neoplasm of breast Acute myocardial infarction Social History Social History Smoking status: Never smoker Alcohol intake: never Substance use: never Gender identity (if verbalized by the patient): Female Spiritual care concerns: No Exam Day of Procedure 12/19/21 22:01
[2021-12-19] MEDS: WITCH HAZEL 40 PADS 1 PAD TOPICAL (22:29)
[2021-12-19] MEDS: BENZOCAINE 20% AER SPR (*SP) 56 GM CAN 1 SPRAY TOPICAL (22:29)
[2021-12-19] MEDS: IBUPROFEN 600 MG TABLET PO (22:29)
[2021-12-20] MEDS: ACETAMINOPHEN 325 MG TABLET 650 MG PO ×3 (01:43→20:08)
[2021-12-20] MEDS: IBUPROFEN 600 MG TABLET PO ×3 (05:05→22:41)
[2021-12-20 05:07] LABS: Hemoglobin 8.5 g/dL (12.0-15.0)
[2021-12-20 05:11] VITALS: BP 125/63; PULSE 90; RESP 18; TEMP 36.6; O2SAT 100
[2021-12-20 07:20] VITALS: BP 107/61; PULSE 72; RESP 16; TEMP 36.9; O2SAT 100
--- NOTE | 2021-12-20 07:30 | PM.OBPNVD ---
OB - PN: Subj Subjective Date/time seen: 12/20/21 07:30 Patient comments: no complaints, pain well controlled, incisional pain, tolerating diet and flatus present OB - PN: Obj Data Labs CBC & Chem 7: 12/20/21 04:46 Labs: Laboratory Results - last 24 hr 12/19/21 12/19/21 12/20/21 06:43 06:43 04:46 Hgb 8.5 L Hct 27.0 L RPR Non-reactive Blood Type A Positive Antibody Screen Negative OB - PN A/P Plan day: 1 Plan: routine care Comments: No problems, routine care Time Spent With Patient Time: Total time spent is greater than 50% in coordination of care (as documented) at patient's floor/unit and/or counseling patient: Exam Const: General: comfortable, no acute distress and alert Resp: Effort & Inspection: normal respiratory effort Auscultation: no crackles, no rales and no rhonchi Cardio: Rate: regular rate Heart sounds: no click, no murmurs and no rubs GI: Inspection: non-distended GI Palp: No Tenderness to palpation present (GI) Auscultation: normal bowel sounds Other: Incision - CDI Extrem: General: normal to inspection, no pedal edema and no calf tenderness
--- NOTE | 2021-12-20 08:39 | PC.NURSE ---
[id number] Introductions were made, then consulted with patient to assess needs related to . Mother led the conversation with her?plans to feed?her infant and the?experience so far. Resources provided for inpatient and outpatient services using a resource guide and mom/baby guide. Mother verbalizes she is able to independently latch infant with appropriate positioning/alignment. She denies any nipple discomfort and is responsively . is currently meeting outcomes for weight, output, jaundice and feeding frequencies of 8-12 times in 24 hours. Mother declines any additional assistance/education at this time. Mother is encouraged to call for assistance if her doesn?t latch or there is discomfort with latching. Mother voiced understanding of information shared. EBTF resources and mom/baby guide reviewed for additional resource information . Reported to the primary RN.
[2021-12-20] MEDS: MULTIVIT/MIN/PREN/FOL AC/IRON TABLET 1 TAB PO (09:32)
[2021-12-20] MEDS: POLYSACCHARIDE IRON COMPLEX 150 MG CAPSULE PO ×2 (09:32→16:37)
[2021-12-20] MEDS: DOCUSATE SODIUM 100 MG CAPSULE PO ×2 (09:32→16:37)
--- NOTE | 2021-12-20 10:05 | WPDANLDPN2 ---
Anes-Prog Note L&D Date/Time: 12/20/21 10:05 Comfortable throughout: labor and delivery Neuraxial method: epidural Epidural/Spinal procedure site: clean & non-tender Neuro status: Neuro function grossly intact. Cardiovascular status: normal Respiratory status: normal Airway patency: baseline Mental status: baseline Post-Op hydration status: normal Vital Signs: Last Vital Signs Temp 36.9 C 12/20/21 07:20 Pulse 72 12/20/21 07:20 Resp 16 12/20/21 07:20 BP 107/61 12/20/21 07:20 Pulse Ox 100 12/20/21 07:20 O2 Del Method Room Air 12/19/21 23:00 Pain score (VAS): 2 I/O: Intake & Output 12/19/21 12/20/21 12/20/21 23:59 07:59 15:59 Intake Total 500 Output Total 153 Balance 347 Post-procedural complaints: none Patient feedback: Patient satisfied with anesthetic care.
[2021-12-20 12:12] VITALS: BP 127/72; PULSE 82; RESP 18; TEMP 36.5; O2SAT 100
[2021-12-20] MEDS: WITCH HAZEL 40 PADS 1 PAD TOPICAL (12:17)
[2021-12-20 16:40] VITALS: BP 107/74; PULSE 70; RESP 18; TEMP 36.2
[2021-12-20 19:55] VITALS: BP 114/75; PULSE 78; RESP 16; TEMP 36.7; O2SAT 100
[2021-12-21] MEDS: ACETAMINOPHEN 325 MG TABLET 650 MG PO (04:23)
--- NOTE | 2021-12-21 07:42 | PM.OBPNVD ---
OB - PN: Subj Subjective Date/time seen: 12/21/21 07:42 Patient comments: no complaints, pain well controlled and tolerating diet OB - PN: Obj Data Labs CBC & Chem 7: 12/20/21 04:46 OB - PN A/P Plan day: 2 Plan: routine care and discharge home Time Spent With Patient Time: Total time spent is greater than 50% in coordination of care (as documented) at patient's floor/unit and/or counseling patient: Exam Const: General: comfortable and no acute distress Resp: Effort & Inspection: normal respiratory effort Auscultation: no rales, no rhonchi and no wheezes Cardio: Rate: regular rate Heart sounds: no click, no murmurs and no rubs GI: GI Palp: Yes Soft to palpation and No Tenderness to palpation present (GI) Auscultation: normal bowel sounds Extrem: General: normal to inspection, no pedal edema and no calf tenderness
--- NOTE | 2021-12-21 07:48 | PM.OBDSVD ---
DS: Admitting Diagnosis Discharge Date 12/21/21 Admitting Diagnosis term DS: Discharge Diagnosis Discharge Diagnosis (1) Term delivered: Code(s): O80 - Encounter for full-term uncomplicated delivery Status: Acute OB - DS: Summary OB Procedures : None OB Procedures Intrapartum: Spontaneous Vag Delivery OB Procedures: : None Time Spent with Patient Time attestation: Total time spent providing and/or coordinating discharge services: Discharge Plan Discharge Discharging Clinician: Jyothi Rivera Patient Disposition: Home, Self-Care Activity: pelvic rest Diet: regular Patient Instructions: Antibiotic Form Stand Alone Forms: General Discharge Information Follow-up/Referrals: Jyothi Rivera MD [Physician] - Discharge Medications: New hydrocodone-acetaminophen 5-325 mg tablet 1 tablet PO Q4H PRN (Reason: pain) Qty: 15 0RF Continued #2 Tablet 1 tablet PO DAILY Adult Low Dose Aspirin 81 mg Tablet 81 mg PO DAILY ferrous sulfate 47.5 mg iron Tablet Extended Release PO Rx Instructions: unsure of strength Date of admission: 12/19/21 05:45 Primary Care Provider: Ke,Patience Nair Admitting Provider: Jyothi Rivera Attending physician on admission: Jyothi Rivera Condition: Stable
[2021-12-21 07:50] VITALS: BP 110/66; PULSE 75; RESP 16; TEMP 36.6; O2SAT 100
[2021-12-21] MEDS: IBUPROFEN 600 MG TABLET PO (09:00)
[2021-12-21] MEDS: MULTIVIT/MIN/PREN/FOL AC/IRON TABLET 1 TAB PO (09:00)
[2021-12-21] MEDS: POLYSACCHARIDE IRON COMPLEX 150 MG CAPSULE PO (09:00)
[2021-12-21] MEDS: DOCUSATE SODIUM 100 MG CAPSULE PO (09:01)
--- NOTE | 2021-12-21 09:47 | PC.NURSE ---
[id number] Mother verbalizes she is able to independently latch infant with appropriate positioning/alignment. She denies any nipple discomfort and is responsively . Mother is feeding appropriately for growth of infant and understands stimulating infant to eat if needed. has had appropriate feedings in the last 24 hours meets the outcomes for weight, output and jaundice at this time. Mother attempted several times to breastfeed her after his circumcision with no success and didn't call out for assistance yesterday. Mother states she is confident to continue effectively her at home or when to call for assistance and denies any additional assistance or education at this time. Mother has hand expressed colostrum that she spoon fed to her infant to encourage this morning. Mother was educated on use and care of syringe feeding as well and encouraged to feed the colostrum that was hand expressed within the hour. Mother just completed a really good feeding for 30 minutes with no pain . Reinforced understanding of milk production, transition of milk, signs of adequate intake, prevention/relief of engorgement, responsive after visualizing feeding cues, the different methods of stimulating infant to breastfeed 2-3 hours after the start of the last feeding, community resources, medication information reviewed per [facility] and when to call a provider using the resource of the EBTF flyer, mom/baby guide, and [facility] website. Mother voiced understanding of the education shared.
[2021-12-22 07:51] VITALS: BP 106/64; PULSE 76; RESP 16; TEMP 37; O2SAT 99
== END 2021-12-21 12:18 | disposition home or self-care (01) | DRG 807 ==
LOC: ANHLDR 05:51 → ANHOB2 23:17
PROVIDERS: Admitting Provider Obstetrics & Gynecology; PCP Nurse Practitioner; Visit Provider Obstetrics & Gynecology
DX: O43.113 Circumvallate placenta, third trimester (principal); Z37.0 Single live birth; O76 Abnormality in fetal heart rate and rhythm complicating labor and delivery; O70.1 Second degree perineal laceration during delivery; O69.81X0 Labor and delivery complicated by cord around neck, without compression, not applicable or unspecified; Z3A.39 39 weeks gestation of pregnancy; Z86.16 Personal history of COVID-19; Z79.82 Long term (current) use of aspirin; Z88.0 Allergy status to penicillin
CPT/HCPCS: 36415; 85014; 85018; 85025; 86592; 86850; 86900; 86901; A9270; J2405; J2590; J2795; J7030; J7120

== ENCOUNTER 2023-03-30 12:47 | Emergency (ER) | payer OTHER, SELFPAY ==
--- NOTE | ~2023-03-30 | XR_ITS ---
EXAMINATION: XR ankle RT min 3V INDICATION: Right ankle pain TECHNIQUE: Four views of the right ankle are obtained. COMPARISON: None available FINDINGS: Bone alignment is normal. There is no fracture. There is lateral soft tissue swelling of an kle and foot. IMPRESSION: 1. Soft tissue swelling without acute osseous abnormality. Reviewed, dictated and finalized at location A. ICE PARTS COORDINATOR
--- NOTE | ~2023-03-30 | XR_ITS ---
EXAMINATION: XR foot RT min 3V DATE: 03/30/2023 13:27 INDICATION: Right foot pain and swelling TECHNIQUE: Dorsoplantar, lateral, and 2 oblique views of the right foot were obtained. COMPARISON: None. FINDINGS: There is lateral soft tissue swelling of the ankle and foot. Bone alignment is normal. Ther e is no fracture. The joint spaces are normal. IMPRESSION: 1. Soft tissue swelling without acute osseous abnormality. Reviewed, dictated and finalized at location A. INDUSTRIAL DEVELOPMENT CONSULTANT
[2023-03-30 12:58] VITALS: BP 108/71; PULSE 84; RESP 20; TEMP 36.3; O2SAT 100
--- NOTE | 2023-03-30 14:21 | ED.GENADULT ---
HPI - General Adult General Chief complaint: Extremity Injury, Lower Stated complaint: right foot injury Time Seen by Provider: 03/30/23 14:14 Source: patient Mode of arrival: wheelchair Limitations: no limitations History of Present Illness HPI narrative: This is a 37-year-old female who presents to the ED with chief complaint of right ankle injury occurred just prior to arrival. Patient states she was walking downstairs when her ankle rolled on 1 of the stairs causing her to fall down. Reports she fell down 2 steps. States that she has pain in the right lateral ankle and lateral foot. Denies any further site of injury or pain. Denies numbness or weakness. Related Data Home Medications Medication Instructions Recorded Confirmed aspirin 81 mg tablet 81 mg PO DAILY 11/25/21 11/25/21 ferrous sulfate mg PO 11/25/21 prenat.vits,evaristo,[id number]-[id number] 1 tablet PO DAILY 11/25/21 11/25/21 Allergies Allergy/AdvReac Type Severity Reaction Status Date / Time Penicillins AdvReac Unknown Vomiting Verified 03/30/23 12:47 Review of Systems Review of Systems: All systems as dictated in [facility] Past Medical History Medical History Healthy female adult Overweight (BMI 25.0-29.9) Term Surgical History Surgical History No history of previous surgery Family History Family History Mother Family history of rheumatoid arthritis Father Family history of diabetes mellitus in first degree relative Sibling Patient's sister is in good health Grandparent Family history of malignant neoplasm of breast Acute myocardial infarction Social History Social History Smoking status: Never smoker Alcohol intake: never Substance use: never Gender identity (if verbalized by the patient): Female Spiritual care concerns: No Exam Narrative: GENERAL: Well-appearing, well-nourished, and in no acute distress. HEAD: Normocephalic, atraumatic. EYES: PERRLA and EOMI. ENT: Nares clear, no rhinorrhea or epistaxis. Mucous membranes moist. Oropharynx without tonsillar hypertrophy exudate or other lesions. NECK: Supple. No adenopathy or masses. CHEST: No respiratory distress. Clear to auscultation. No wheezes rales or rhonchi HEART: Regular rate and rhythm. No murmur heard. Normal peripheral pulses. ABDOMEN: Soft, nontender, nondistended, normal active bowel sounds. MSK: Mild tenderness to the lateral right ankle and lateral right foot. No bruising. No deformity. Neurovascularly intact distally. Soft compartments. No tenderness to the left leg. SKIN: Warm, dry, no rash. NEURO: Alert and oriented x3. No focal deficits. PSYCH: Normal mood and affect. Course Vital Signs Vital signs: Vital Signs Temperature 97.4 F L 03/30/23 12:58 Pulse Rate 84 03/30/23 12:58 Respiratory Rate 20 03/30/23 12:58 Blood Pressure 108/71 03/30/23 12:58 Pulse Oximetry 100 03/30/23 12:58 Temperature 97.4 F L 03/30/23 12:58 Pulse Rate 62 03/30/23 14:55 Respiratory Rate 18 03/30/23 14:55 Blood Pressure 110/74 03/30/23 14:55 Pulse Oximetry 100 03/30/23 14:55 Medical Decision Making MDM Narrative Medical decision making narrative: This is a 37-year-old female who presents to the ED with chief complaint of right ankle injury occurring just prior to arrival. She has minor swelling and tenderness to the right lateral foot and right lateral ankle. Vitals are normal. The neurovascularly intact and soft compartments. X-rays of the right foot and right ankle are negative for any acute findings. Symptoms are consistent with ankle sprain. She was given crutches and Leonard wrap here. Pt will be discharged in stable condition. Return precautions given and supportive measures discussed.
[2023-03-30 14:55] VITALS: BP 110/74; PULSE 62; RESP 18; O2SAT 100
== END 2023-03-30 14:56 | disposition home or self-care (01) ==
LOC: ANHED 14:51
PROVIDERS: Emergency Provider Physician Assistant; PCP Nurse Practitioner
DX: S93.401A Sprain of unspecified ligament of right ankle, initial encounter (principal); S96.911A Strain of unspecified muscle and tendon at ankle and foot level, right foot, initial encounter; W10.9XXA Fall (on) (from) unspecified stairs and steps, initial encounter
CPT/HCPCS: 73610; 73630; 99283

== ENCOUNTER 2023-08-09 17:29 | Emergency (ER) | payer OTHER, SELFPAY ==
[2023-08-09 17:46] VITALS: BP 129/111; PULSE 100; RESP 16; TEMP 37.1; O2SAT 99
--- NOTE | 2023-08-09 18:36 | ED.WOUNDLAC ---
HPI - Wound/Laceration General Chief Complaint: Wound/Laceration Stated Complaint: cut left finger Time Seen by Provider: 08/09/23 18:36 Source: patient Mode of arrival: ambulatory Limitations: no limitations History of Present Illness HPI narrative: 37 yo F presents with laceration to L middle finger. Cut herself with kitchen knife while chopping onions. Tetanus UTD. No bleeding since arriving to [facility]. ROM and distal NV intact. All systems reviewed and negative except as noted above. Related Data Allergies Allergy/AdvReac Type Severity Reaction Status Date / Time Penicillins AdvReac Intermediate Vomiting Verified 08/09/23 17:53 Review of Systems Review of Systems: CONSTITUTIONAL: Denies fever, chills, or sweats. EYES: Denies visual changes, redness, or discharge. ENT: Denies rhinorrhea, congestion, sore throat, or otalgia. CARDIOVASCULAR: Denies chest pain, palpitations, or edema. RESPIRATORY: Denies cough or dyspnea. GASTROINTESTINAL: Denies abdominal pain, nausea, vomiting, or diarrhea. GENITOURINARY: Denies dysuria or hematuria. SKIN: Denies rash or itching. Reports laceration to left middle finger. MUSCULOSKELETAL: Denies back pain, joint pain, or myalgia. NEUROLOGIC: Denies headache, numbness, or weakness. PSYCHIATRIC: Denies anxiety or depression. All other systems reviewed are negative, except as documented in HPI. [facility] Past Medical History Medical History Healthy female adult Overweight (BMI 25.0-29.9) Term Surgical History Surgical History No history of previous surgery Family History Family History Mother Family history of rheumatoid arthritis Father Family history of diabetes mellitus in first degree relative Sibling Patient's sister is in good health Grandparent Family history of malignant neoplasm of breast Acute myocardial infarction Social History Social History Smoking status: Never smoker Alcohol intake: never Substance use: never Gender identity (if verbalized by the patient): Female Spiritual care concerns: No Comments At time of signature, agree with nursing past medical, surgical, social and family history. There is no relevant family history pertinent to the presenting complaint. Exam Narrative: GENERAL: This is a well-nourished, well-developed patient, in no apparent distress. HEAD: normocephalic, atraumatic. EYES: PERRL. Sclera clear/white. Vision is grossly intact. EARS: External ears normal NOSE: External nose normal NECK: Neck supple, non-tender without lymphadenopathy, masses or thyromegaly. CARDIOVASCULAR: Regular rate and rhythm without murmurs, gallops, or rubs. RESPIRATORY: Clear to auscultation. Breath sounds equal bilaterally. No wheezes, rales, or rhonchi. SKIN: warm, Dry, no suspicious lesions or rash, good texture and turgor. superficial laceration to L middle finger just above nail. no damage to nail. no bleeding. does not require suture repair. NEURO: awake, alert, and oriented to person, place and time. There were no obvious focal neurologic abnormalities. EXTREMITIES: No joint tenderness, effusion, or edema noted. Course Course Level of Care: Express Care Visit Vital Signs Vital signs: Vital Signs Temperature 37.1 C 08/09/23 17:46 Pulse Rate 100 08/09/23 17:46 Respiratory Rate 16 08/09/23 17:46 Blood Pressure 129/111 H 08/09/23 17:46 Pulse Oximetry 99 08/09/23 17:46 Oxygen Delivery Room Air 08/09/23 17:46 Temperature 37.1 C 08/09/23 17:46 Pulse Rate 100 08/09/23 17:46 Respiratory Rate 16 08/09/23 17:46 Blood Pressure 129/111 H 08/09/23 17:46 Pulse Oximetry 99 08/09/23 17:46 Oxygen Delivery Room Air 08/09/23 17:46 Reviewed MDM - Wound/L
[2023-08-09 18:53] VITALS: BP 118/80
== END 2023-08-09 18:53 | disposition home or self-care (01) ==
PROVIDERS: Emergency Provider Nurse Practitioner Family; PCP Nurse Practitioner
DX: S61.213A Laceration without foreign body of left middle finger without damage to nail, initial encounter (principal); W26.0XXA Contact with knife, initial encounter
CPT/HCPCS: 99212; G0463

== ENCOUNTER 2023-09-11 16:08 | Emergency (ER) | payer OTHER, SELFPAY ==
--- NOTE | 2023-09-11 16:09 | ED.URI ---
HPI - URI/Sore Throat General Chief Complaint: Upper Respiratory Infection Stated Complaint: Cough Time Seen by Provider: 09/11/23 16:09 Source: patient Mode of arrival: ambulatory Limitations: no limitations History of Present Illness HPI Narrative: Misti is a 38-year-old female patient presenting to the clinic today with complaints of sore throat and a cough times 3-4 days. She denies any fever, chills, or nasal congestion. Cough is nonproductive. MD elicited complaint: sore throat and nasal congestion Related Data Allergies Allergy/AdvReac Type Severity Reaction Status Date / Time Penicillins AdvReac Intermediate Vomiting Verified 09/11/23 16:09 Review of Systems Review of Systems: Pertinent positives per HPI. Patient denies any fever, chills, rash, headache, visual changes, dizziness, shortness of breath, chest pain, palpitations, nausea, vomiting, diarrhea, constipation, abdominal pain, or any urinary issues. PMFSH Past Medical History Medical History Healthy female adult Overweight (BMI 25.0-29.9) Term Surgical History Surgical History No history of previous surgery Family History Family History Mother Family history of rheumatoid arthritis Father Family history of diabetes mellitus in first degree relative Sibling Patient's sister is in good health Grandparent Family history of malignant neoplasm of breast Acute myocardial infarction Social History Social History Smoking status: Never smoker Alcohol intake: never Substance use: never Gender identity (if verbalized by the patient): Female Spiritual care concerns: No Comments At the time of my signature, I reviewed and agree with the nursing past medical, surgical, social, and family history. There is no relevant family history pertinent to the patient complaint. Exam Narrative: General: Well-developed, well nourished, in no apparent distress Head: Normocephalic, atraumatic Eyes: Pupils equally round and reactive to light bilaterally, EOM intact, sclera and conjunctive clear, no discharge, lids normal Ears: TMs intact and clear, ear canals clear, no drainage, grossly hearing normal. Nose: Nares patent, clear discharge, no inflammation, no sinus tenderness. Mouth: Oral pharynx without lesions or masses, good dentition, MMM. Neck: Supple, trachea midline, no enlargement of anterior or posterior cervical nodes, no thyroid masses or goiter palpable. Cardio: Regular rate and rhythm, s1 and s2 normal, no murmur appreciated. Resp: Clear to auscultation bilaterally, no rhonchi, rales, wheezing or rubs Course Course Emergency Course: Portions of this record may have been created with voice recognition software. Level of Care: Express Care Visit Vital Signs Vital signs: Vital signs reviewed MDM - URI/Sore Throat MDM Narrative Medical decision making narrative: At the time of visit patient is resting comfortably on the exam table. Patient appears to be nontoxic. Plan: I suspect patient has pharyngitis with acute cough. Supportive measures were discussed with the patient and they voiced understanding discharge instructions and agrees to treatment plan. Return precautions reviewed Differential Diagnosis Differential diagnosis: Likely upper respiratory infection, otitis media, sinusitis, viral infection, bronchitis, influenza, pharyngitis and other (COVID) Discharge Plan Discharge Clinical Impression: Pharyngitis, Cough Patient Disposition: Home, Self-Care Condition: Stable Instructions: Antibiotic Form, Pharyngitis (ED), Acute Cough (ED) Additional Instructions: Strep test was negative in the clinic today. We will send strep for culture if this comes back positive idma mantilla
[2023-09-11 16:16] VITALS: BP 133/82; PULSE 86; RESP 16; TEMP 36.8; O2SAT 99
== END 2023-09-11 16:36 | disposition home or self-care (01) ==
PROVIDERS: Emergency Provider Nurse Practitioner Family; PCP Nurse Practitioner
DX: J02.9 Acute pharyngitis, unspecified (principal); R05.9 Cough, unspecified
CPT/HCPCS: 87081; 87880; 99213; G0463